=== PATIENT | female | born 2000 | race Caucasian/White ===

== ENCOUNTER 2022-04-05 07:42 | Outpatient (CLI) | payer OTHER, SELFPAY ==
[2022-04-05 09:15] LABS: Albumin* 4.5 g/dL (3.3-5.0)
[2022-04-05 09:16] LABS: Chloride* 105 mmol/L (96-114); Potassium* 4.4 mmol/L (3.6-5.1); Sodium* 139 mmol/L (135-149)
[2022-04-05 09:18] LABS: Aspartate Amino Transferase* 29 U/L (12-35); Bilirubin Total* 0.6 mg/dL (0.1-1.5); Carbon Dioxide* 25 mmol/L (20-32); Creatinine* 0.7 mg/dL (0.5-1.5); Estimated Glomerular Filt Rate 127 ml/min
[2022-04-05 09:19] LABS: Alanine Aminotransferase* 30 U/L (4-35); Alkaline Phosphatase* 77 U/L (40-150); Blood Urea Nitrogen* 17 mg/dL (5-24); Calcium* 9.1 mg/dL (8.4-10.6); Glucose* 97 mg/dL (60-115)
[2022-04-05 09:34] LABS: Vitamin D 25 Hydroxy* 40 ng/mL (30-80)
== END 2022-04-05 07:43 | disposition home or self-care (01) ==
PROVIDERS: PCP Family Medicine; Visit Provider Nurse Practitioner Family
DX: F32.A Depression, unspecified (principal); F41.9 Anxiety disorder, unspecified; F42.9 Obsessive-compulsive disorder, unspecified
CPT/HCPCS: 80053; 82306; 84443

== ENCOUNTER 2022-10-27 16:12 | Outpatient (CLI) | payer OTHER, SELFPAY | END 2022-10-27 16:13 | disposition home or self-care (01) | LOC: NFLDREF 10-28 14:54 | PROVIDERS: PCP Family Medicine; Referring Provider Family Medicine; Visit Provider Family Medicine | DX: R09.81 Nasal congestion (principal); J30.9 Allergic rhinitis, unspecified; J30.2 Other seasonal allergic rhinitis | CPT/HCPCS: 87635 ==

== ENCOUNTER 2023-05-22 09:17 | Outpatient (CLI) | payer OTHER, SELFPAY | END 2023-05-22 09:18 | disposition home or self-care (01) | LOC: NFLDREF 05-24 14:10 | PROVIDERS: PCP Family Medicine; Referring Provider Family Medicine; Visit Provider Family Medicine | DX: Z13.6 Encounter for screening for cardiovascular disorders (principal); Z13.29 Encounter for screening for other suspected endocrine disorder; Z13.9 Encounter for screening, unspecified | CPT/HCPCS: 80053; 80061; 84443 ==

== ENCOUNTER 2024-10-03 15:27 | Outpatient (CLI) | payer OTHER, SELFPAY | END 2024-10-03 15:28 | disposition home or self-care (01) | PROVIDERS: PCP Family Medicine; Visit Provider Family Medicine | DX: F41.9 Anxiety disorder, unspecified (principal); R53.83 Other fatigue | CPT/HCPCS: 84443 ==